=== PATIENT | male | born 1965 | race Caucasian/White ===

== ENCOUNTER → 2023-09-05 11:50 | Outpatient (REF) | payer BC, SELFPAY | LOC: RAD 11:50 | PROVIDERS: ATTENDING PHYSICIAN Family Medicine | DX: Z87.891 Personal history of nicotine dependence (principal); M25.552 Pain in left hip; Z12.2 Encounter for screening for malignant neoplasm of respiratory organs | CPT/HCPCS: 71271; 73502 ==

== ENCOUNTER → 2024-11-05 10:11 | Outpatient (REF) | payer BC, SELFPAY | LOC: HWRAD 10:11 | PROVIDERS: ATTENDING PHYSICIAN Family Medicine | DX: Z87.891 Personal history of nicotine dependence (principal); Z72.0 Tobacco use | CPT/HCPCS: 71271 ==